=== PATIENT | male | born 1950 | race Hispanic/Latino ===

== ENCOUNTER 2018-01-02 08:11 | Emergency (ER) | payer OTHER ==
[2018-01-02] MEDS ORDERED: NA CHLORIDE 0.9% 500 ML ONE (08:37)
[2018-01-02 09:05] LABS: Absolute Lymphocytes (CBC) 2.3 K/uL (0.7-4.9); Absolute Monocytes 0.5 K/uL (0.1-1.3); Basophils % 0.4 % (0-1.3); Eosinophils % 2.5 % (0-4.4); Lymphocytes % 38.1 % (15.3-44.8); MCH 32.2 pg (27.0-35.0); MCV 94.5 fL (80-100); MPV 6.9 fL (7.6-11.3); Monocytes % 8.3 % (3.3-12.3); RBC Red Blood Cell Count 4.76 M/uL (4.33-5.43)
[2018-01-02 09:08] LABS: Protime INR 1.02
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
[2018-01-02 09:11] LABS: Potassium 3.9 mEq/L (3.6-5.0)
[2018-01-02 09:17] LABS: Bilirubin Direct 0.1 mg/dL (0-0.2); Bilirubin Total 0.9 mg/dL (0.3-1.2); Magnesium 1.9 mg/dL (1.8-2.5); Protein, Total 7.5 g/dL (6.0-8.3)
[2018-01-02 09:39] LABS: CKMB Creatine Kinase MB 10.5 ng/ml (0.3-4.0)
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
[2018-01-02 10:24] LABS: Urine Blood NEGATIVE (NEG); Urine Glucose NEGATIVE (NEG); Urine Protein NEGATIVE (NEG); Urine Specific Gravity 1.015 (1.005-1.030)
--- NOTE | 2018-01-02 10:35 | EKG ---
Test Date: 2018-01-02 Test Time: 08:35:22 Wax Pattern Repairer: JOSELITO MEASUREMENT RESULTS: Intervals: Rate: 70 TX: 132 QRSD: 82 QT: 396 QTc: 427 [place]: P: 16 TX: 132 QRS: 46 T: 40 INTERPRETIVE STATEMENTS: Normal sinus rhythm Normal ECG No previous ECG available for comparison Electronically Signed On 01-02-18 10:34:43 CDT by Wilberto Schmitz
== END 2018-01-02 10:18 | disposition home or self-care (01) ==
LOC: ER 08:11
DX: E86.0 Dehydration (principal); M62.82 Rhabdomyolysis; R07.9 Chest pain, unspecified
CPT/HCPCS: 36415; 71045; 80048; 80076; 81003; 82550; 82553; 83735; 83880; 84484; 85025; 85610; 85730; 93005; 99285